=== PATIENT | male | born 1955 | race Caucasian/White ===

== ENCOUNTER 2023-11-27 21:50 | Emergency (ER) | payer MEDICARE, SELFPAY ==
[2023-11-27 21:54] VITALS: BP 160/97; PULSE 82; TEMP 36.8; O2SAT 94; BMI 33.2
--- NOTE | 2023-11-27 21:58 | CT_ITS ---
The [address] [address] Patient Name: NATALIA MICHAEL MRN: [id number] date: 1955 Sex: M Assigned Patient Location: ER Current Patient Location: .[facility] Accession/Order Number: [id number] Exam Date: 11/27/2023 22:36 Report Date: 11/27/2023 23:44 At the request of: CASSIE NGUYEN Procedure: CT head/brain wo con EXAM: CT head/brain wo con, CT cervical spine wo con INDICATION: 68 years old; Male. Fell, hit head, on Xarelto TECHNIQUE: CT Head (ax/cor/sag reformats). Ionizing radiation dose reduced via iterative reconstruction/FBP blend and body size kV/mA adjustment. Comparison: Head CT dated 10/22/2011. FINDINGS: POSTOPERATIVE CHANGES: None. BRAIN PARENCHYMA: No intraparenchymal or extra-axial hemorrhage. No mass effect. No midline shift or herniation. Old lacunar infarction in the thalamus on the right. Normal hansen/white differentiation. VENTRICLES/EXTRA-AXIAL SPACES: Enlarged, consistent with atrophy. SINUSES/MASTOIDS: Mucoperiosteal thickening in the maxillary sinuses worse on the left. Ethmoid sinus thickening. Thickening and fluid level in the frontal sinus on the right. Nasal septal deviation to the right. Mastoids and middle ears are clear. MSK: Extracranial soft tissue swelling and subcutaneous hemorrhage in the left frontal/supraorbital region. No subjacent calvarial fracture. There is nasal bone deformity on the right consistent with indeterminate age nasal fracture. Recommend direct evaluation. If there is concern for acute fracture, consider further evaluation with facial bone CT. OTHER: Vascular calcification and tortuosity. This is consistent with atherosclerotic change. TECHNIQUE: CT imaging of the cervical spine was performed. IV contrast: None. Dose reduction techniques were achieved by using automated exposure control and/or adjustment of mA and/or kV according to patient size and/or use of iterative reconstruction technique. COMPARISON: None available. FINDINGS: POSTOPERATIVE CHANGES: None. ALIGNMENT: Nonspecific straightening of normal cervical curve. COMPRESSION FRACTURES: No fracture or vertebral body collapse. No bone displacement. No asymmetric widening of the facets. There are lucencies through bulky bridging anterior osteophytes at the C6-C7 level, however these appear chronic. 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 PREVERTEBRAL SOFT TISSUES: Normal. CRANIOCERVICAL JUNCTION: There is a normal relationship of the occipital condyles, lateral masses of C1, and articular surfaces of C2. The base of the dens and body of C2 are intact. There is narrowing of the predental space with osteophyte formation arising from the anterior arch of C1 and the dens. POSTERIOR FOSSA: The cerebellar tonsils are above the foramen magnum. Disc levels: C2-C3: No disc herniation. No spinal canal or foraminal narrowing. C3-C4: Shallow central protrusion type disc herniation. Mild central canal stenosis. Neural foramina and lateral recesses are patent. C4-C5: Disc space narrowing posteriorly. Disc bulging and endplate osteophyte formation. Mild central canal stenosis. Neural foramina patent. C5-C6: Disc space narrowing. Vertebral endplate degeneration. Anterior osteophyte formation. Uncovertebral joint degeneration. Central canal is patent. Neural foramina patent. C6-C7: Bulky bridging anterior osteophyte formation. Disc space narrowing. The morning artifacts. Central canal patent. Neural foramina patent. C7-T1: Beam hardening artifacts. Central canal patent. Neural foramina patent. UPPER THORACIC SPINE: Not included in this examination. OTHER: Hypodense nodule in the left lobe of the thyroid. This measures 5.97 x 4.8 mm in diameter, image 76/series 4. Recommend nonemergent thyroid ultrasound. CT/CT head/brain wo con IMPRESSION: 1. No acute intracranial abnormality. No hemorrhage or mass effect. 2. Old lacunar infarction. 3. Atrophy. 4. Sinus thickening with fluid level in the right frontal sinus. 5. Extracranial soft tissue swelling with subcutaneous hemorrhage in the supraorbital/frontal region on the left. No subjacent fracture. 6. Comminuted fracture with deformity of the right nasal bones. This is indeterminate in age. Recommend direct evaluation. If there is concern for acute fracture, suggest follow-up with facial bone CT. 7. Multilevel cervical spondylosis. No acute fracture. Central protrusion type disc herniation at C3-C4. 8. Hypodense nodule right lobe of the thyroid. Electronically authenticated by: MARY OCAMPO Date: 11/27/2023 23:44
--- NOTE | 2023-11-27 21:58 | CT_ITS ---
The [address] [address] Patient Name: NATALIA MICHAEL MRN: [id number] date: 1955 Sex: M Assigned Patient Location: ER Current Patient Location: .[facility] Accession/Order Number: [id number] Exam Date: 11/27/2023 22:36 Report Date: 11/27/2023 23:44 At the request of: CASSIE NGUYEN Procedure: CT cervical spine wo con EXAM: CT head/brain wo con, CT cervical spine wo con INDICATION: 68 years old; Male. Fell, hit head, on Xarelto TECHNIQUE: CT Head (ax/cor/sag reformats). Ionizing radiation dose reduced via iterative reconstruction/FBP blend and body size kV/mA adjustment. Comparison: Head CT dated 10/22/2011. FINDINGS: POSTOPERATIVE CHANGES: None. BRAIN PARENCHYMA: No intraparenchymal or extra-axial hemorrhage. No mass effect. No midline shift or herniation. Old lacunar infarction in the thalamus on the right. Normal hansen/white differentiation. VENTRICLES/EXTRA-AXIAL SPACES: Enlarged, consistent with atrophy. SINUSES/MASTOIDS: Mucoperiosteal thickening in the maxillary sinuses worse on the left. Ethmoid sinus thickening. Thickening and fluid level in the frontal sinus on the right. Nasal septal deviation to the right. Mastoids and middle ears are clear. MSK: Extracranial soft tissue swelling and subcutaneous hemorrhage in the left frontal/supraorbital region. No subjacent calvarial fracture. There is nasal bone deformity on the right consistent with indeterminate age nasal fracture. Recommend direct evaluation. If there is concern for acute fracture, consider further evaluation with facial bone CT. OTHER: Vascular calcification and tortuosity. This is consistent with atherosclerotic change. TECHNIQUE: CT imaging of the cervical spine was performed. IV contrast: None. Dose reduction techniques were achieved by using automated exposure control and/or adjustment of mA and/or kV according to patient size and/or use of iterative reconstruction technique. COMPARISON: None available. FINDINGS: POSTOPERATIVE CHANGES: None. ALIGNMENT: Nonspecific straightening of normal cervical curve. COMPRESSION FRACTURES: No fracture or vertebral body collapse. No bone displacement. No asymmetric widening of the facets. There are lucencies through bulky bridging anterior osteophytes at the C6-C7 level, however these appear chronic. 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 PREVERTEBRAL SOFT TISSUES: Normal. CRANIOCERVICAL JUNCTION: There is a normal relationship of the occipital condyles, lateral masses of C1, and articular surfaces of C2. The base of the dens and body of C2 are intact. There is narrowing of the predental space with osteophyte formation arising from the anterior arch of C1 and the dens. POSTERIOR FOSSA: The cerebellar tonsils are above the foramen magnum. Disc levels: C2-C3: No disc herniation. No spinal canal or foraminal narrowing. C3-C4: Shallow central protrusion type disc herniation. Mild central canal stenosis. Neural foramina and lateral recesses are patent. C4-C5: Disc space narrowing posteriorly. Disc bulging and endplate osteophyte formation. Mild central canal stenosis. Neural foramina patent. C5-C6: Disc space narrowing. Vertebral endplate degeneration. Anterior osteophyte formation. Uncovertebral joint degeneration. Central canal is patent. Neural foramina patent. C6-C7: Bulky bridging anterior osteophyte formation. Disc space narrowing. The morning artifacts. Central canal patent. Neural foramina patent. C7-T1: Beam hardening artifacts. Central canal patent. Neural foramina patent. UPPER THORACIC SPINE: Not included in this examination. OTHER: Hypodense nodule in the left lobe of the thyroid. This measures 5.97 x 4.8 mm in diameter, image 76/series 4. Recommend nonemergent thyroid ultrasound. CT/CT cervical spine wo con IMPRESSION: 1. No acute intracranial abnormality. No hemorrhage or mass effect. 2. Old lacunar infarction. 3. Atrophy. 4. Sinus thickening with fluid level in the right frontal sinus. 5. Extracranial soft tissue swelling with subcutaneous hemorrhage in the supraorbital/frontal region on the left. No subjacent fracture. 6. Comminuted fracture with deformity of the right nasal bones. This is indeterminate in age. Recommend direct evaluation. If there is concern for acute fracture, suggest follow-up with facial bone CT. 7. Multilevel cervical spondylosis. No acute fracture. Central protrusion type disc herniation at C3-C4. 8. Hypodense nodule right lobe of the thyroid. Electronically authenticated by: MARY OCAMPO Date: 11/27/2023 23:44
--- NOTE | 2023-11-27 21:59 | ED.HEATRA1 ---
HPI HPI - Head Injury General Chief complaint: Head Injury Stated complaint: HEAD INJURY D/T FALL Time Seen by Provider: 11/27/23 21:56 Source: patient Limitations: no limitations History of Present Illness HPI Narrative: 68-year-old male presents to the emergency department for an injury to his forehead. He fell and hit his forehead on the driveway. He is on Xarelto. This happened just before coming into the emergency department. His last tetanus shot was more than 10 years ago. He has a little bit of neck pain as well and otherwise did not sustain any other injuries. No LOC, no vomiting. Related Data Previous Rx's ?Medication ?Instructions ?Recorded cephalexin 500 mg capsule 500 mg PO TID 7 days #21 caps 11/28/23 Allergies Allergy/AdvReac Type Severity Reaction Status Date / Time No Known Drug Allergies Allergy Verified 11/27/23 21:54 Opioid HPI Opioid Management Most Recent Pain and Opioid Data: No Data to Display Review of Systems ROS Narrative A ten point review of systems is negative except as noted above. Exam Narrative Exam Narrative: Nurses note and vital signs reviewed and patient is not hypoxic. General: The patient appears well and in no apparent distress. Patient is resting comfortably on cart. Skin: Warm, dry, no pallor noted. There is no rash noted. Head: Normocephalic, abrasion and hematoma on the forehead, left of midline. There is a superficial laceration at the most superior part of his nose. There is no active bleeding and the wound is not gaping. No epistaxis. Eye: Normal conjunctiva, no drainage Ears, Nose, Mouth, and Throat: oral mucosa is moist. Nares patent. Cardiovascular: Not tachycardic Respiratory: Patient is in no distress, no accessory muscle use, lungs are clear to auscultation, no wheezing, rales or rhonchi GI: Soft and nontender Musculoskeletal: Extremity joints all have full range of motion Neurological: A&O, normal speech Psychiatric: Cooperative Constitutional Vital Signs, click to edit/add: Last Vital Signs Temp 98.3 F 11/27/23 21:54 Pulse 88 11/28/23 00:34 Resp 20 11/28/23 00:34 BP 119/91 11/28/23 00:34 Pulse Ox 93 L 11/28/23 00:34 O2 Del Method Room Air 11/28/23 00:34 Course Vital Signs Vital signs: Vital Signs Temperature 98.3 F 11/27/23 21:54 Pulse Rate 82 11/27/23 21:54 Respiratory Rate 18 11/27/23 21:54 Blood Pressure 160/97 H 11/27/23 21:54 Pulse Oximetry 94 L 11/27/23 21:54 Oxygen Delivery Method Room Air 11/27/23 21:54 Temperature 98.3 F 11/27/23 21:54 Pulse Rate 88 11/28/23 00:34 Respiratory Rate 20 11/28/23 00:34 Blood Pressure 119/91 11/28/23 00:34 Pulse Oximetry 93 L 11/28/23 00:34 Oxygen Delivery Method Room Air 11/28/23 00:34 MDM - Head Injury MDM Narrative Medical decision making narrative: CT brain and CT C-spine are negative. The patient reports that he had a nasal fracture when he was in [employer]. He does not have much pain in the nasal bone area and I am not convinced that this is an acute fracture. The patient has a superficial laceration there and he will be placed on prophylactic Keflex. If symptoms persist in the nose he will follow-up with his doctor but the patient states that there is not really much she can do about a nasal fracture anyway. There is a questionable lucency in his wrist so a Velcro wrist splint was applied, application checked by me and found to be appropriate, he is neurovascular intact and he has made an appointment to follow-up with orthopedics. Treatment diagnosis and follow-up were discussed with the patient and his family. Differential Diagnosis Differential diagnosis: Likely epidural hematoma, closed head injury, subarachnoid hematoma, subdural hematoma and other (Facial hematoma, facial contusion, wrist fracture, wrist sprain) Imaging Data CT scan - head: Radiologist's impression: ITS Impressions Cervical Spine CT 11/27/23 21:58 IMPRESSION: 1. No acute intracranial abnormality. No hemorrhage or mass effect. 2. Old lacunar infarction. 3. Atrophy. 4. Sinus thickening with fluid level in the right frontal sinus. 5. Extracranial soft tissue swelling with subcutaneous hemorrhage in the supraorbital/frontal region on the left. No subjacent fracture. 6. Comminuted fracture with deformity of the right nasal bones. This is indeterminate in age. Recommend direct evaluation. If there is concern for acute fracture, suggest follow-up with facial bone CT. 7. Multilevel cervical spondylosis. No acute fracture. Central protrusion type disc herniation at C3-C4. 8. Hypodense nodule right lobe of the thyroid. Electronically authenticated by: MARY OCAMPO Date: 11/27/2023 23:[address] 11/27/23 21:58 IMPRESSION: 1. No acute intracranial abnormality. No hemorrhage or mass effect. 2. Old lacunar infarction. 3. Atrophy. 4. Sinus thickening with fluid level in the right frontal sinus. 5. Extracranial soft tissue swelling with subcutaneous hemorrhage in the supraorbital/frontal region on the left. No subjacent fracture. 6. Comminuted fracture with deformity of the right nasal bones. This is indeterminate in age. Recommend direct evaluation. If there is concern for acute fracture, suggest follow-up with facial bone CT. 7. Multilevel cervical spondylosis. No acute fracture. Central protrusion type disc herniation at C3-C4. 8. Hypodense nodule right lobe of the thyroid. Electronically authenticated by: MARY OCAMPO Date: 11/27/2023 23:44 Discharge Plan Discharge Stand Alone Forms: Portal Instructions Chief Complaint: Head Injury Clinical Impression: Acute pain of right wrist, Facial contusion Patient Disposition: Home, Self-Care Time of Disposition Decision: 00:39 Condition: Good Mode of Transportation: Private Vehicle Prescriptions / Home Meds: New cephalexin 500 mg capsule 500 mg PO TID 7 Days Qty: 21 0RF Print Language: Telugu Instructions: Wrist Injury (ED), Facial Contusion (ED) Additional Instructions: See Dr. Hurtado on November 29 Referrals: VIJI LUJAN [Primary Care Provider] - 1 week Bi Hurtado MD [Physician] - 1 week
--- NOTE | 2023-11-27 22:14 | XR_ITS ---
The [place] [id number] Patient Name: NATALIA MICHAEL MRN: [id number] date: 1955 Sex: M Assigned Patient Location: ER Current Patient Location: ER Accession/Order Number: [id number] Exam Date: 11/27/2023 22:43 Report Date: 11/28/2023 00:13 At the request of: CASSIE NGUYEN Procedure: XR wrist RT min 3V STUDY: XR wrist RT min 3V, [id number] HISTORY: fall COMPARISON: None FINDINGS/IMPRESSION: Soft tissue swelling with subtle lucency through the radial styloid suspect for nondisplaced fracture. Consider follow-up radiographs in [address] of the wrist for further evaluation. No other potentially acute fracture demonstrated. No dislocation or suspicious osseous lesion. Mild osteophytosis of the ojfufkdk-phlxbzpgu-ocmqxserd articulation and first carpometacarpal joint. Electronically authenticated by: CECILY TAMAYO Date: 11/28/2023 00:13
[2023-11-27] MEDS: ADACEL DIPH,PERTUSS(ACELL),TET VAC/PF 0.5 ML ADULT SYRINGE IM (23:09)
--- NOTE | 2023-11-27 23:17 | PC.NURSE ---
Patient reports tripping and falling on driveway, hitting face on ground. Denies any LOC, abrasion present to bridge of nose and forhead. Areas cleansed with antiseptic cleanser, bleedfing controlled, ice pack given.
[2023-11-28 00:34] VITALS: BP 119/91; PULSE 88; O2SAT 93
== END 2023-11-28 01:10 | disposition home or self-care (01) ==
PROVIDERS: Emergency Provider Emergency Medicine; PCP Family Medicine
DX: S00.83XA Contusion of other part of head, initial encounter (principal); M25.531 Pain in right wrist; S01.21XA Laceration without foreign body of nose, initial encounter; Z79.01 Long term (current) use of anticoagulants; W18.39XA Other fall on same level, initial encounter; M47.812 Spondylosis without myelopathy or radiculopathy, cervical region; Z23 Encounter for immunization
CPT/HCPCS: 70450; 72125; 73110; 90471; 90715; 99284

== ENCOUNTER 2023-12-07 11:49 | Outpatient (OUT) | payer MEDICARE, SELFPAY ==
--- NOTE | 2023-12-07 | XR_ITS ---
The [address] [address] Patient Name: NATALIA MICHAEL MRN: [id number] date: 1955 Sex: M Assigned Patient Location: Current Patient Location: Accession/Order Number: [id number] Exam Date: 12/07/2023 12:12 Report Date: 12/08/2023 07:37 At the request of: MARVIN TREJO Procedure: XR wrist RT 2V PROCEDURE: XR wrist RT 2V HISTORY: RIGHT WRIST PAIN COMPARISON: XR wrist right 11/27/2023 FINDINGS: BONES:Suspect mild band of sclerosis across distal radial metaphysis and base of radial styloid process extending into the medial articular surface. Normal alignment is maintained. Suspect callus formation along posterior margin of radial metaphysis. SOFT TISSUES:Suspect soft tissue swelling. Images were obtained to cast material which limits evaluation. EFFUSION:None visible. OTHER: Negative. XR/XR wrist RT 2V IMPRESSION: 1. Images obtained through cast material. 2. Suspect nondisplaced distal radial metaphyseal fracture with early bone healing changes. Evaluation is limited by overlying cast material. Electronically authenticated by: MARVIN CIFUENTES Date: 12/08/2023 07:37
== END 2023-12-07 11:50 | disposition home or self-care (01) ==
LOC: EC 11:49
PROVIDERS: PCP Family Medicine; Visit Provider Orthopaedic Surgery
DX: S52.591D Other fractures of lower end of right radius, subsequent encounter for closed fracture with routine healing (principal)
CPT/HCPCS: 73100

== ENCOUNTER 2024-01-04 10:57 | Outpatient (OUT) | payer MEDICARE, SELFPAY ==
--- NOTE | 2024-01-04 | XR_ITS ---
The [address] [address] Patient Name: NATALIA MICHAEL MRN: [id number] date: 1955 Sex: M Assigned Patient Location: Current Patient Location: Accession/Order Number: [id number] Exam Date: 01/04/2024 11:15 Report Date: 01/05/2024 10:00 At the request of: MARVIN TREJO Procedure: XR wrist RT min 3V PROCEDURE: XR wrist RT min 3V HISTORY: RIGHT WRIST PAIN COMPARISON: XR wrist right 11/27/2023 FINDINGS: BONES:Increased sclerosis within distal radial metaphysis consistent with bone healing process. No appreciable displacement. SOFT TISSUES:No visible soft tissue swelling. EFFUSION:None visible. OTHER: Negative. XR/XR wrist RT min 3V IMPRESSION: 1. Images were obtained to cast material which limits evaluation. 2. Evidence of ongoing bone healing of nondisplaced distal radius fracture. Electronically authenticated by: MARVIN CIFUENTES Date: 01/05/2024 10:00
== END 2024-01-04 10:58 | disposition home or self-care (01) ==
LOC: EC 10:57
PROVIDERS: PCP Family Medicine; Visit Provider Orthopaedic Surgery
DX: S52.591D Other fractures of lower end of right radius, subsequent encounter for closed fracture with routine healing (principal)
CPT/HCPCS: 73110

== ENCOUNTER 2024-02-01 09:57 | Outpatient (OUT) | payer MEDICARE, SELFPAY ==
--- NOTE | 2024-02-01 | XR_ITS ---
The [address] [address] Patient Name: NATALIA MICHAEL MRN: [id number] date: 1955 Sex: M Assigned Patient Location: Current Patient Location: Accession/Order Number: [id number] Exam Date: 02/01/2024 09:58 Report Date: 02/02/2024 11:51 At the request of: MARVIN TREJO Procedure: XR wrist RT min 3V PROCEDURE: XR wrist RT min 3V COMPARISON: 01/04/2024, 11/27/2023 HISTORY: RIGHT WRIST PAIN FINDINGS: BONES:Increased sclerosis along a transverse/complex distal radius fracture consistent with continued healing. No new fracture or dislocation. Degenerative changes with joint space narrowing most significant first carpometacarpal joint SOFT TISSUES:Negative. No visible soft tissue swelling. EFFUSION:None visible. OTHER: Negative. XR/XR wrist RT min 3V IMPRESSION: Stable healing distal radius fracture Electronically authenticated by: YURIDIA ALANIS Date: 02/02/2024 11:51
== END 2024-02-01 09:58 | disposition home or self-care (01) ==
LOC: EC 09:57
PROVIDERS: PCP Family Medicine; Visit Provider Orthopaedic Surgery
DX: S52.591D Other fractures of lower end of right radius, subsequent encounter for closed fracture with routine healing (principal)
CPT/HCPCS: 73110

== ENCOUNTER 2024-02-04 11:04 | Outpatient (OUT) | payer MEDICARE, SELFPAY ==
--- NOTE | 2024-02-04 11:07 | US_ITS ---
The [address] [address] Patient Name: NATALIA MICHAEL MRN: [id number] date: 1955 Sex: M Assigned Patient Location: US Current Patient Location: Accession/Order Number: [id number] Exam Date: 02/04/2024 11:08 Report Date: 02/05/2024 04:29 At the request of: VIJI LUJAN Procedure: US thyroid EXAMINATION: US thyroid HISTORY: Thyroid Nodule E04.1 COMPARISON: No relevant comparison available. FINDINGS: RIGHT LOBE: Slightly prominent and mildly heterogeneous echotexture. Incidental 4 mm colloid cyst. Lobe size: 5.1 x 1.9 x 1.3 cm LEFT LOBE: Heterogeneous echotexture and contains a 7 mm TR 4 nodule within inferior pole. Lobe size: 3.5 x 1.5 x 1.0 cm ISTHMUS: Heterogeneous echotexture. No abnormal thickening or nodules. Thickness: 3 mm. US/US thyroid IMPRESSION: 1. Nonspecific heterogeneous echotexture with minimally enlarged right lobe and small TR 4 nodule within left lobe. No additional follow-up recommended at this time. TR4 (moderately suspicious): If > 1.0 cm, follow-up ultrasound in 1, 2, 3, and 5 years. If > 1.5 cm, fine needle aspiration (FNA). Electronically authenticated by: MARVIN CIFUENTES Date: 02/05/2024 04:29
== END 2024-02-04 11:05 | disposition home or self-care (01) ==
LOC: US 11:04
PROVIDERS: PCP Family Medicine; Visit Provider Family Medicine
DX: E04.1 Nontoxic single thyroid nodule (principal)
CPT/HCPCS: 76536